=== PATIENT | female | born 1985 | race African-American/Black ===

== ENCOUNTER 2023-07-24 17:13 | Inpatient (IN) | payer OTHER ==
[2023-07-24 18:18] VITALS: BMI 24.8
[2023-07-24] MEDS ORDERED: chlordiazePOXIDE HCL 25 MG CAPSULE PO PRN (20:45)
[2023-07-24] MEDS ORDERED: BISMUTH SUBSALICYLATE 524 MG/30 ML PO PRN (21:06)
[2023-07-24] MEDS ORDERED: BENZONATATE 200 MG CAPSULE PO PRN (21:06)
[2023-07-24] MEDS ORDERED: POLYETHYLENE GLYCOL (HEALTHYLAX) 3350 17 GM PACKET PO PRN (21:06)
[2023-07-24] MEDS ORDERED: ACETAMINOPHEN 325 MG TABLET (FP) PO PRN (21:06)
[2023-07-24] MEDS ORDERED: LOPERAMIDE HCL 2 MG CAPSULE PO PRN (21:06)
[2023-07-24] MEDS ORDERED: MAG HYDROX/AL HYDROX/SIMETH 30 ML UNIT-DOSE CUP PO PRN (21:06)
[2023-07-24] MEDS ORDERED: guaiFENesin 600 MG TABLET.ER (FP) PO PRN (21:06)
[2023-07-24] MEDS ORDERED: METHOCARBAMOL 500 MG TABLET ONE (23:02)
[2023-07-24] MEDS ORDERED: chlordiazePOXIDE HCL 25 MG CAPSULE ONE (23:02)
[2023-07-24] MEDS ORDERED: MELATONIN 5 MG TABLETS ONE (23:03)
[2023-07-24] MEDS ORDERED: ONDANSETRON *ODT* 4 MG TABLET ONE (23:04)
[2023-07-24] MEDS: ONDANSETRON *ODT* 4 MG TABLET SL PRN (23:06)
[2023-07-24] MEDS: THIAMINE 100 MG TABLET PO SCH (23:45)
[2023-07-24] MEDS: MELATONIN 5 MG TABLETS PO SCH (23:45)
[2023-07-24] MEDS: chlordiazePOXIDE HCL 25 MG CAPSULE PO SCH (23:45)
[2023-07-24] MEDS: METHOCARBAMOL 500 MG TABLET PO PRN (23:47)
[2023-07-25] MEDS: IBUPROFEN 600 MG TABLET (FP) PO PRN (05:50)
[2023-07-25] MEDS: PRENATAL VITAMINS W/ FOLIC ACID TABLET (FP) PO SCH (10:17)
[2023-07-25 11:57] LABS: HEMATOCRIT 36.7 % (32.4-45.2); MCHC 32.7 g/dl (32.0-36.0); MEAN CELL VOLUME 88.6 fl (80-96); MEAN PLT VOLUME 8.1 fl (7.5-11.1); PLATELET COUNT 218 10^3/uL (134-434); RBC 4.14 M/mm3 (3.60-5.2); RDW 17.7 % (11.6-15.6); WHITE BLOOD COUNT 4.5 K/mm3 (4.0-10.0)
[2023-07-25 12:04] LABS: POTASSIUM 3.6 mmol/L (3.5-5.1)
[2023-07-25 12:08] LABS: CALCIUM 8.8 mg/dL (8.5-10.1)
[2023-07-25 12:09] LABS: ALBUMIN 3.8 g/dl (3.4-5.0)
[2023-07-25 12:14] LABS: BILIRUBIN,TOTAL 0.3 mg/dL (0.2-1); CREATININE 0.9 mg/dL (0.55-1.3); TOT PROT 7.4 g/dl (6.4-8.2)
[2023-07-25] MEDS: IBUPROFEN 400 MG TABLET (FP) PO PRN (13:46)
[2023-07-25] MEDS ORDERED: GABAPENTIN 300 MG CAPSULE PO SCH (22:00)
[2023-07-25] MEDS: OLANZapine 5 MG TABLET PO SCH (22:16)
[2023-07-25] MEDS: GABAPENTIN 100 MG CAPSULE PO SCH (22:16)
[2023-07-25] MEDS: traZODone HCL 50 MG TABLET (FP) PO SCH (22:16)
[2023-07-26] MEDS: chlordiazePOXIDE HCL 25 MG CAPSULE PO SCH (05:51)
[2023-07-27] MEDS ORDERED: chlordiazePOXIDE HCL 10 MG CAPSULE PO PRN
[2023-07-27] MEDS: chlordiazePOXIDE HCL 10 MG CAPSULE PO SCH (05:50)
[2023-07-27] MEDS: DICYCLOMINE HCL 10 MG CAPSULE PO PRN (08:56)
[2023-07-28] MEDS: chlordiazePOXIDE HCL 10 MG CAPSULE PO SCH (05:33)
[2023-07-28] MEDS: BENZOCAINE/MENTHOL (CHLORASEPTIC ) LOZENGE MM PRN (06:56)
[2023-07-28] MEDS: OLANZapine 5 MG TABLET PO ONE (11:20)
[2023-07-28] MEDS: hydrOXYzine PAMOATE 50 MG CAPSULE (FP) PO PRN (11:20)
[2023-07-28] MEDS: MAGNESIUM HYDROX 2400MG/30ML ORAL SUSPENSION 30 ML CUP PO PRN (19:53)
[2023-07-28] MEDS: OLANZapine 5 MG TABLET PO SCH (21:05)
[2023-07-29] MEDS: chlordiazePOXIDE HCL 10 MG CAPSULE PO ONE (04:12)
[2023-07-29 13:57] VITALS: BP 124/87; PULSE 90; RESP 16; TEMP 98.8
== END 2023-07-29 14:40 | disposition other institution (70) | DRG 775 ==
LOC: YASAS 17:13 → Y3N 22:57
PROVIDERS: ADMIT Allergy & Immunology; ATTEND Surgery
PROC: HZ2ZZZZ Detoxification Services for Substance Abuse Treatment (ICD-10-PCS; principal; 2023-07-24)
DX: F10.230 Alcohol dependence with withdrawal, uncomplicated (principal); F12.20 Cannabis dependence, uncomplicated; F19.24 Other psychoactive substance dependence with psychoactive substance-induced mood disorder; F32.A Depression, unspecified; G47.00 Insomnia, unspecified; Z62.810 Personal history of physical and sexual abuse in childhood; Z63.8 Other specified problems related to primary support group; Z91.410 Personal history of adult physical and sexual abuse; Z63.0 Problems in relationship with spouse or partner; Z86.59 Personal history of other mental and behavioral disorders; Z28.310 Unvaccinated for COVID-19; Z28.9 Immunization not carried out for unspecified reason; Z59.00 Homelessness unspecified
CPT/HCPCS: 36415; 80053; 80305; 81025; 85027; 86780; 87811; 93005; 93010; Q0162

== ENCOUNTER 2024-11-15 14:53 | Inpatient (IN) | payer OTHER ==
[2024-11-15 16:08] VITALS: BMI 30.2
[2024-11-15] MEDS ORDERED: BENZOCAINE/MENTHOL (CHLORASEPTIC ) LOZENGE MM PRN (17:32)
[2024-11-15] MEDS ORDERED: DICYCLOMINE HCL 10 MG CAPSULE PO PRN (17:32)
[2024-11-15] MEDS ORDERED: guaiFENesin 600 MG TABLET.ER (FP) PO PRN (17:32)
[2024-11-15] MEDS ORDERED: NALOXONE (NARCAN) HCL 4 MG/0.1 ML SPRAY NS PRN (17:32)
[2024-11-15] MEDS ORDERED: IBUPROFEN 400 MG TABLET (FP) PO PRN (17:32)
[2024-11-15] MEDS ORDERED: MAGNESIUM HYDROX 2400MG/30ML ORAL SUSPENSION 30 ML CUP PO PRN (17:32)
[2024-11-15] MEDS ORDERED: POLYETHYLENE GLYCOL (HEALTHYLAX) 3350 17 GM PACKET PO PRN (17:32)
[2024-11-15] MEDS ORDERED: ACETAMINOPHEN 325 MG TABLET (FP) PO PRN (17:32)
[2024-11-15] MEDS ORDERED: BENZONATATE 200 MG CAPSULE PO PRN (17:32)
[2024-11-15] MEDS ORDERED: BISMUTH SUBSALICYLATE 524 MG/30 ML PO PRN (17:32)
[2024-11-15] MEDS ORDERED: LOPERAMIDE HCL 2 MG CAPSULE PO PRN (17:32)
[2024-11-15] MEDS: METHOCARBAMOL 500 MG TABLET PO PRN (18:16)
[2024-11-15] MEDS: ONDANSETRON *ODT* 4 MG TABLET SL PRN (18:17)
[2024-11-15] MEDS: NALTREXONE HCL 50 MG TABLET PO ONE (18:23)
[2024-11-15] MEDS: MELATONIN 5 MG TABLETS PO SCH (22:13)
[2024-11-15] MEDS: hydrOXYzine PAMOATE 25 MG CAPSULE (FP) PO PRN (22:13)
[2024-11-15] MEDS: levETIRAcetam 500 MG TABLET (FP) PO SCH (22:13)
[2024-11-15] MEDS: THIAMINE 100 MG TABLET PO SCH (22:13)
[2024-11-16] MEDS: PRENATAL VITAMINS W/ FOLIC ACID TABLET (FP) PO SCH (10:25)
[2024-11-16] MEDS: NALTREXONE HCL 50 MG TABLET PO SCH (10:32)
[2024-11-16 11:48] LABS: MCHC 32.6 g/dl (32.2-35.5); MEAN CELL VOLUME 90.9 fl (79.4-94.8); MEAN PLT VOLUME 10.3 fl (9.4-12.3); RDW 14.5 % (12.1-16.8)
[2024-11-16 12:46] LABS: CO2 39 mmol/L (21-32); GLUCOSE,RANDOM 123 mg/dL (74-106)
[2024-11-16 12:47] LABS: SGOT/AST 74 U/L (15-37); SGPT/ALT 33 U/L (13-61)
[2024-11-16 12:49] LABS: TOT PROT 6.9 g/dl (6.4-8.2)
[2024-11-16 12:50] LABS: ALK PHOS 90 U/L (45-117)
[2024-11-16 12:51] LABS: CREATININE 1.1 mg/dL (0.55-1.3)
[2024-11-16] MEDS: MAG HYDROX/AL HYDROX/SIMETH 30 ML UNIT-DOSE CUP PO PRN (13:25)
[2024-11-16] MEDS: traZODone HCL 50 MG TABLET (FP) PO SCH (22:27)
[2024-11-16] MEDS: IBUPROFEN 600 MG TABLET (FP) PO PRN (22:30)
[2024-11-19 08:49] VITALS: RESP 18
[2024-11-19 13:06] VITALS: BP 108/76; PULSE 79; TEMP 98.7
== END 2024-11-19 14:31 | disposition home or self-care (01) | DRG 774 ==
LOC: YASAS 14:53 → Y6N 17:56
PROVIDERS: ADMIT Neuromusculoskeletal Medicine & OMM; ATTEND Family Medicine Addiction Medicine
PROC: HZ2ZZZZ Detoxification Services for Substance Abuse Treatment (ICD-10-PCS; principal; 2024-11-15)
DX: F10.230 Alcohol dependence with withdrawal, uncomplicated (principal); F14.10 Cocaine abuse, uncomplicated; F12.10 Cannabis abuse, uncomplicated; F17.210 Nicotine dependence, cigarettes, uncomplicated; F10.282 Alcohol dependence with alcohol-induced sleep disorder; F25.9 Schizoaffective disorder, unspecified; F32.9 Major depressive disorder, single episode, unspecified; F43.10 Post-traumatic stress disorder, unspecified; G62.9 Polyneuropathy, unspecified; D64.9 Anemia, unspecified; Z62.810 Personal history of physical and sexual abuse in childhood; Z63.8 Other specified problems related to primary support group; Z86.59 Personal history of other mental and behavioral disorders
CPT/HCPCS: 36415; 80053; 80305; 80307; 81025; 82962; 85027; 86780; 93005; 93010; Q0162